=== PATIENT | male | born 1970 | race Caucasian/White ===

== ENCOUNTER 2020-07-07 08:25 | Emergency (ER) | payer OTHER ==
[~2020-07-07] VITALS: Ht 175.3 cm; Wt 70.3 kg
[2020-07-07] MEDS ORDERED: CEPH500 PO (11:52)
== END 2020-07-07 12:12 | disposition home or self-care (01) ==
LOC: ER 08:25
DX: S61.411A Laceration without foreign body of right hand, initial encounter (principal); I10 Essential (primary) hypertension; I25.2 Old myocardial infarction; E78.00 Pure hypercholesterolemia, unspecified; Z79.899 Other long term (current) drug therapy; W26.0XXA Contact with knife, initial encounter; Y93.89 Activity, other specified
CPT/HCPCS: 73130; 76882; 99283-25